=== PATIENT | male | born 2000 | race Caucasian/White ===

== ENCOUNTER 2020-04-05 20:30 | Emergency (ER) | payer MEDICAID, OTHER ==
[2020-04-05] MEDS ORDERED: LORazepam 0.5 MG (ATIVAN) TABLET PO STA (20:49)
[2020-04-05] MEDS ORDERED: diphenhydrAMINE 25 MG TAB (BENADRYL) PO STA (20:49)
[2020-04-05] MEDS ORDERED: AMOXICILLIN 500 MG (POLYMOX) CAP PO STA (20:49)
--- NOTE | 2020-04-05 20:57 | ED General ---
General Chief Complaint: General Problems/Pain Stated Complaint: JAW PAIN,NAUSEA,TROUBLE SWALLOWING Nursing Triage Note: Pt complaining of his jaw locking up for the past 2 days. Pt also states he has been nauseated tonight Nursing Sepsis Screen: No Definite Risk Source of Information: Patient, Family History of Present Illness Date Seen by Provider: Apr 05, 2020 Time Seen by Provider: 20:32 Initial Comments 20 yo Male presents with his family having complaints of intermittent jaw pain and dental pain since November 2019. It has been worse in the last 2-3 days. He feels like his jaw gets locked up at times. He also feels like he is nauseated sometimes and has thrown up. He has not had any new medicines but takes Risperidone and OTC sinus meds for years now. He has no fever or chills. He has heart racing and is very anxious. He has some pain with swallowing at times. He feels like he has dental pain and some swelling to gums as well. His family thinks it might be TMJ for his pain and symptoms. He has not gone to a dentist or seen Dr. Oropeza about his symptoms. Because he felt worse tonight and was having n/v he came to the ED. Allergies and Home Medications Allergies Coded Allergies: No Known Drug Allergies (Unverified , 04/05/20) Home Medications Amoxicillin 500 Mg Capsule, 500 MG PO TID Prescribed by: DAIANA ROMERO on 04/05/202133 Patient Home Medication List Home Medication List Reviewed: Yes Review of Systems Review of Systems Constitutional: No chills, No fever EENTM: see HPI, dental problems; No ear discharge, No epistaxis, No nose congestion Respiratory: no symptoms reported Cardiovascular: no symptoms reported Gastrointestinal: see HPI Genitourinary: no symptoms reported Musculoskeletal: no symptoms reported Skin: no symptoms reported Psychiatric/Neurological: Anxiety Hematologic/Lymphatic: No Symptoms Reported Past Omrnpfu-Wsrkgw-Kyarmr Hx Past Med/Social Hx: Reviewed Nursing Past Med/Soc Hx Patient Social History Alcohol Use: Denies Use 2nd Hand Smoke Exposure: No Recent Infectious Disease Expo: No Recent Hopitalizations: No Past Medical History Surgeries: No Respiratory: No Cardiac: No Neurological: No Genitourinary: No Gastrointestinal: No Musculoskeletal: No Endocrine: No HEENT: No Cancer: No Psychosocial: No Integumentary: No Blood Disorders: No Physical Exam Vital Signs Vital Signs - First Documented 04/05/20 20:32 Temp 36.7 Pulse 109 Resp 18 B/P (MAP) 125/91 (102) Pulse Ox 98 O2 Delivery Room Air Capillary Refill : Less Than 3 Seconds Height, Weight, BMI Height: '" Weight: lbs. oz. kg; BMI Method: General Appearance: Anxious HEENT: PERRL/EOMI, TMs Normal, Moist Mucous Membranes Neck: Full Range of Motion, Supple, Lymphadenopathy (L) (mild anterior cervical), Lymphadenopathy (R) (mild anterior cervical), Tender Lateral (anter ior neck) Respiratory: Chest Non Tender, Lungs Clear, Normal Breath Sounds, No Accessory Muscle Use, No Respiratory Distress Cardiovascular: Normal Peripheral Pulses, Tachycardia Gastrointestinal: Normal Bowel Sounds, No Pulsatile Mass, Non Tender, Soft Extremity: Normal Capillary Refill, No Pedal Edema Neurologic/Psychiatric: Alert, Oriented x3, Other (anxious) Skin: Normal Color, Warm/Dry Progress/Results/Core Measures Suspected Sepsis Recent Fever Within 48 Hours: No Infection Criteria Present: None New/Unexplained Altered Menta: No Sepsis Screen: No Definite Risk SIRS Temperature: Pulse: 109 Respiratory Rate: 18 Laboratory Tests 04/05/20 20:52: White Blood Count 7.4 Blood Pressure 125 /91 Mean: 102 Laboratory Tests 04/05/20 20:52: Creatinine 0.78, Platelet Count 184, Total Bilirubin 0.7 Results/Orders Lab Results Laboratory Tests Test 04/05/20 20:52 Range/Units White Blood Count 7.4 4.3-11.0 10^3/uL Red Blood Count 5.42 4.35-5.85 10^6/uL Hemoglobin 16.2 13.3-17.7 G/DL Hematocrit 45 40-54 % Mean Corpuscular Volume 83 80-99 FL Mean Corpuscular Hemoglobin 30 25-34 PG Mean Corpuscular Hemoglobin Concent 36 32-36 G/DL Red Cell Distribution Width 11.9 10.0-14.5 % Platelet Count 184 130-400 10^3/uL Mean Platelet Volume 11.9 H 7.4-10.4 FL Immature Granulocyte % (Auto) 0 % Neutrophils (%) (Auto) 56 42-75 % Lymphocytes (%) (Auto) 33 12-44 % Monocytes (%) (Auto) 8 0-12 % Eosinophils (%) (Auto) 2 0-10 % Basophils (%) (Auto) 0 0-10 % Neutrophils # (Auto) 4.2 1.8-7.8 X 10^3 Lymphocytes # (Auto) 2.4 1.0-4.0 X 10^3 Monocytes # (Auto) 0.6 0.0-1.0 X 10^3 Eosinophils # (Auto) 0.2 0.0-0.3 10^3/uL Basophils # (Auto) 0.0 0.0-0.1 10^3/uL Immature Granulocyte # (Auto) 0.0 0.0-0.1 10^3/uL Sodium Level 140 135-145 MMOL/L Potassium Level 3.6 3.6-5.0 MMOL/L Chloride Level 104 98-107 MMOL/L Carbon Dioxide Level 21 21-32 MMOL/L Anion Gap 15 H 5-14 MMOL/L Blood Urea Nitrogen 13 7-18 MG/DL Creatinine 0.78 0.60-1.30 MG/DL Estimat Glomerular Filtration Rate > 60 BUN/Creatinine Ratio 17 Glucose Level 105 70-105 MG/DL Calcium Level 9.4 8.5-10.1 MG/DL Corrected Calcium 9.0 8.5-10.1 MG/DL Total Bilirubin 0.7 0.1-1.0 MG/DL Aspartate Amino Transf (AST/SGOT) 19 5-34 U/L Alanine Aminotransferase (ALT/SGPT) 25 0-55 U/L Alkaline Phosphatase 53 40-136 U/L Total Protein 7.6 6.4-8.2 GM/DL Albumin 4.5 3.2-4.5 GM/DL My Orders Orders - DAIANA ROMERO MD Cbc With Automated Diff (04/05/20 20:49) Comprehensive Metabolic Panel (04/05/20 20:49) Diphenhydramine Tablet (Benadryl Tablet) (04/05/20 20:49) Lorazepam Tablet (Ativan Tablet) (04/05/20 20:49) Amoxicillin Capsule (Polymox Capsule) (04/05/20 20:49) Vital Signs/I&O 04/05/20 04/05/20 20:32 21:44 Temp 36.7 Pulse 109 105 Resp 18 18 B/P (MAP) 125/91 (102) 122/75 Pulse Ox 98 97 O2 Delivery Room Air Room Air Capillary Refill : Less Than 3 Seconds Blood Pressure Mean: 102 Progress Note #1: Progress Note pt refused IV because he is afraid of needles. Will allow blood draw. Check CBC and Chemistry. For his anxiety and jaw locking up on him as well as possible dental infection will start on amoxicillin, Benadryl and ativan for possible spasms and dystonia of his jaw since he is having complaints of clicking and locking of jaw and is having some dystonic type movements during the exam. Progress Note #2: Time: 21:30 Progress Note labs show no significant abnormality on CBC or Chemistry to account for his symptoms. will continue with treatment for his possible dental infection and have him use Benadryl 50-100 mg every6 hours as needed for anxiety and jaw grinding until he can get in with ENT or dentist for possible mouth guard and TMJ evaluation. Advised it is possible this could be a side effect of his medicine, even though he has been on it for years. Check with Dr. Oropeza for follow up and may need adjustment of medicine. Departure Impression Primary Impression: Chronic jaw pain Additional Impressions: Jaw clicking Pain, dental Disposition: HOME, SELF-CARE Condition: Stable Departure-Patient Inst. Decision time for Depature: 21:34 Referrals: ZEINAB FLORES MD,TAHIR PACK (PCP/Family) Primary Care Physician Patient Instructions: Dental Pain ED, TMJ Exercises, Temporomandibular Joint (TMJ) Disorders (DC) Add. Discharge Instructions: Try the course of antibiotics for possible dental infection. Take the benadryl to see if it helps with keeping your jaw muscles relaxed. Follow up with ENT, like Dr. Flores, or Dentist to check about TMJ or dental problems. Follow up with primary provider for continued concerns. All discharge instructions reviewed with patient and/or family. Voiced understanding. Scripts Amoxicillin (Amoxicillin) 500 Mg Capsule 500 MG PO TID for 10 Days, #30 CAP 0 Refills Prov: DAIANA ROMERO MD 04/05/20 DAIANA ROMERO MD Apr 05, 2020 20:57
[2020-04-05 21:02] LABS: BASOPHILS % (AUTO) 0 % (0-10); EOSINOPHILS % (AUTO) 2 % (0-10); HEMATOCRIT 45 % (40-54); HEMOGLOBIN 16.2 G/DL (13.3-17.7); LYMPHOCYTES % (AUTO) 33 % (12-44); MEAN CORPUSCULAR HEMOGLOBIN 30 PG (25-34); MEAN CORPUSCULAR HGB CONC 36 G/DL (32-36); MEAN CORPUSCULAR VOLUME 83 FL (80-99); MEAN PLATELET VOLUME 11.9 FL (7.4-10.4); MONOCYTES % (AUTO) 8 % (0-12); NEUTROPHILS % (AUTO) 56 % (42-75); PLATELET COUNT 184 10^3/uL (130-400); WHITE BLOOD COUNT 7.4 10^3/uL (4.3-11.0)
[2020-04-05 21:03] LABS: EOSINOPHILS # (AUTO) 0.2 10^3/uL (0.0-0.3); LYMPHOCYTES # (AUTO) 2.4 X 10^3 (1.0-4.0); MONOCYTES # (AUTO) 0.6 X 10^3 (0.0-1.0); NEUTROPHILS # (AUTO) 4.2 X 10^3 (1.8-7.8)
[2020-04-05 21:27] LABS: CARBON DIOXIDE 21 MMOL/L (21-32); CHLORIDE 104 MMOL/L (98-107); POTASSIUM 3.6 MMOL/L (3.6-5.0); SODIUM 140 MMOL/L (135-145)
[2020-04-05 21:28] LABS: ALANINE AMINOTRANSFERASE 25 U/L (0-55); ALBUMIN 4.5 GM/DL (3.2-4.5); ALKALINE PHOSPHATASE 53 U/L (40-136); BILIRUBIN,TOTAL 0.7 MG/DL (0.1-1.0); BUN/CREATININE RATIO 17; CALCIUM 9.4 MG/DL (8.5-10.1); CREATININE SERUM 0.78 MG/DL (0.60-1.30); GFR ESTIMATED > 60; GLUCOSE 105 MG/DL (70-105); TOTAL PROTEIN 7.6 GM/DL (6.4-8.2)
[2020-04-05] MEDS ORDERED: AMOX500C2 PO (21:34)
[2020-04-05 21:44] VITALS: BP 122/75
== END 2020-04-05 21:45 | disposition home or self-care (01) ==
LOC: ER FS 20:32
DX: M26.69 Other specified disorders of temporomandibular joint (principal); K08.89 Other specified disorders of teeth and supporting structures; F41.9 Anxiety disorder, unspecified
CPT/HCPCS: 36415; 80053; 85025; 99283

== ENCOUNTER 2021-09-14 09:09 | Emergency (ER) | payer MEDICAID ==
[~2021-09-14] VITALS: Ht 180.3 cm; Wt 104.3 kg
[~2021-09-14 09:09] MED LIST: AMOX500C2 PO
[2021-09-14 09:16] VITALS: BP 117/74
--- NOTE | 2021-09-14 09:19 | ED EENT ---
History of Present Illness General Chief Complaint: Dental Problems/Pain Stated Complaint: JAW PAIN History of Present Illness Date Seen by Provider: Sep 14, 2021 Time Seen by Provider: 09:19 Initial Comments 21-year-old male is here with complaints of TMJ flareup. Patient has been drinking caffeine the past couple weeks which always trigger it, as well as feeling anxious. Patient denies any trauma, falls, injuries, fever. Patient states that muscle relaxants usually help and alleviate the issue. Allergies and Home Medications Allergies Coded Allergies: No Known Drug Allergies (Unverified , 04/05/20) Patient Home Medication List Home Medication List Reviewed: Yes Amoxicillin (Amoxicillin) 500 Mg Capsule, 500 MG PO TID Prescribed by: DAIANA ROMERO on 04/05/202133 Review of Systems Review of Systems Constitutional: no symptoms reported Eyes: No Symptoms Reported Ears: No Symptoms Reported Nose: no symptoms reported Mouth: pain Throat: no symptoms reported Respiratory: no symptoms reported Cardiovascular: no symptoms reported Gastrointestinal: no symptoms reported Skin: no symptoms reported Neurological: No Symptoms Reported Hematologic/Lymphatic: No Symptoms Reported Immunological/Allergic: no symptoms reported Past Hsgejst-Hjqnjd-Qwpepr Hx Past Medical History Surgeries: No Respiratory: No Cardiac: No Neurological: No Genitourinary: No Gastrointestinal: No Musculoskeletal: No Endocrine: No HEENT: No Cancer: No Psychosocial: No Integumentary: No Blood Disorders: No Physical Exam Vital Signs Vital Signs - First Documented 09/14/21 09:16 Temp 36.1 Pulse 108 Resp 16 B/P (MAP) 117/74 (88) Pulse Ox 99 O2 Delivery Room Air Height, Weight, BMI Height: '" Weight: lbs. oz. kg; BMI Method: General Appearance: WD/WN, no apparent distress Eyes: bilateral eye PERRL, bilateral eye EOMI Nose: normal inspection Mouth/Throat: normal mouth inspection, pharynx normal, other (clicking when biting down, but no dislocation) Respiratory: lungs clear Neurologic/Psychiatric: reinspector II-XII nml as tested, no motor/sensory deficits, alert, normal mood/affect Progress/Results/Core Measures Results/Orders My Orders Orders - CARLEE HERRERA MD Ibuprofen Tablet (Motrin Tablet) (09/14/21 09:25) Cyclobenzaprine Tablet (Flexeril Tablet) (09/14/21 09:25) Vital Signs/I&O 09/14/21 09:16 Temp 36.1 Pulse 108 Resp 16 B/P (MAP) 117/74 (88) Pulse Ox 99 O2 Delivery Room Air Progress Progress Note : Progress Note 1. ACUTE ON CHRONIC TMJ: - Flexeril and Ibuprofen given in ER. Pt has periodic flares. - Prescriptions for Flexeril 5mg tid for [address] to drive while taking Flexeril - Ibuprofen 600mg Q6H - Follow up with PCP or ENT - Advised mouth guard as well -The patient was seen in the ED, and treated appropriately to presentation at a specific point in time. Patient is informed that there is a possibility that disease and illness can evolve and change in acuity rapidly or slowly after patient is discharged from the ER. Precautionary advice given to the patient for immediate return to ER if symptoms worsen or do not resolve, and to seek emergency care sooner rather than later. Pt also advised on the importance of PCP follow up and compliance with management and follow up plan with PCP and/or specialist, as this is part of the management plan. Pt verbally expressed understanding. Departure Impression Primary Impression: TMJ (temporomandibular joint syndrome) Disposition: 01 HOME, SELF-CARE Condition: Improved Departure-Patient Inst. Referrals: SELF,TAHIR PACK (PCP/Family) Primary Care Physician Patient Instructions: TMJ Exercises, Temporomandibular Joint (TMJ) Disorders Add. Discharge Instructions: - Prescriptions for Flexeril 5mg tid for 7 days - Ibuprofen 600mg Q6H - Follow up with PCP or ENT -Advised not to drive while taking Flexeril -Advised to use a mouthguard while sleeping All discharge instructions reviewed with patient and/or family. Voiced understanding. Scripts Cyclobenzaprine HCl (Cyclobenzaprine HCl) 5 Mg Tablet 5 MG PO TID for 7 Days, #21 TAB Prov: CARLEE HERRERA MD 09/14/21 CARLEE HERRERA MD Sep 14, 2021 09:19
[2021-09-14] MEDS ORDERED: IBUPROFEN 800 MG (MOTRIN) TAB PO STA (09:25)
[2021-09-14] MEDS ORDERED: CYCLOBENZAPRINE 10 MG (FLEXERIL) TAB PO STA (09:25)
[2021-09-14] MEDS ORDERED: CYCL5TAB PO (09:59)
== END 2021-09-14 10:05 | disposition home or self-care (01) ==
LOC: EDUNIT# 09:09 → ER FS 09:12
DX: M26.609 Unspecified temporomandibular joint disorder, unspecified side (principal); Z28.310 Unvaccinated for COVID-19
CPT/HCPCS: 99283